=== PATIENT | female | born 1950 | race Caucasian/White ===

== ENCOUNTER 2018-04-08 13:55 | Observation (INO) | payer MEDICARE, OTHER ==
--- NOTE | 2018-04-08 14:20 | ED ---
General Adult HPI - General Chief complaint: Chest Pain Stated complaint: Chest Pain Time Seen by Provider: 04/08/18 14:00 Source: EMS, RN notes reviewed Mode of arrival: EMS Limitations: no limitations - History of Present Illness Initial comments: This is a 67-year-old female who presented to [facility] with chest pain shortness of breath and dizziness. Patient was evaluated her beach in though the d-dimer was normal the physician was concerned that the patient's might have a PE in because of the GFR being low he did not want a CAT scan the patient but he did start heparin. Patient continues to have chest pain which she describes the pressure in the center of her chest. Patient also states she' s a little bit short of breath and continues to be dizzy. Patient denies any recent fever chills or cough per patient denies abdominal pain patient denies nausea vomiting diarrhea per patient denies headache patient denies numbness weakness. Patient denies any near syncopal episode. - Related Data Home Medications Medication Instructions Recorded Confirmed Citalopram Hydrobromide 40 mg PO DAILY 04/08/18 04/08/18 [Citalopram HBr] Cyclobenzaprine [Flexeril] 10 mg PO DAILY 04/08/18 04/08/18 Fluconazole 200 mg PO DAILY 04/08/18 04/08/18 Gabapentin [Neurontin] 400 mg PO TID 04/08/18 04/08/18 Levothyroxine Sodium [Synthroid] 50 mcg PO DAILY 04/08/18 04/08/18 Losartan/Hydrochlorothiazide 1 tab PO DAILY 04/08/18 04/08/18 [Losartan-Hctz 100-25 mg Tab] Montelukast [Singulair] 10 mg PO DAILY 04/08/18 04/08/18 Oxybutynin Xl [Ditropan Xl] 5 mg PO DAILY 04/08/18 04/08/18 Pantoprazole [Protonix] 40 mg PO DAILY 04/08/18 04/08/18 Zolpidem [Ambien] 10 mg PO HS PRN 04/08/18 04/08/18 clonazePAM 0.5 mg PO BID 04/08/18 04/08/18 oxyCODONE HCL [OxyIR] 5 mg PO TID 04/08/18 04/08/18 rOPINIRole HCL 0.5 mg PO DAILY 04/08/18 04/08/18 Allergies Allergy/AdvReac Type Severity Reaction Status Date / Time acetaminophen [From Vicodin] Allergy Rash/Hives Verified 04/08/18 14:11 ciprofloxacin [From Cipro] Allergy Rash/Hives Verified 04/08/18 14:11 hydrocodone [From Vicodin] Allergy Rash/Hives Verified 04/08/18 14:11 Iaozeue-Afu-Ryy Reductase AdvReac Nausea & Verified 04/08/18 14:11 Inhibitor Vomiting Review of Systems ROS Statement: Those systems with pertinent positive or pertinent negative responses have been documented in the HPI. ROS Other: All systems not noted in ROS Statement are negative. Past Medical History Past Medical History: Asthma, Hypertension, Thyroid Disorder History of Any Multi-Drug Resistant Organisms: None Reported Past Surgical History: Back Surgery, Cholecystectomy, Hysterectomy, Orthopedic Surgery Additional Past Surgical History / Comment(s): pelvic reconstruction Past Psychological History: No Psychological Hx Reported Smoking Status: Never smoker Past Alcohol Use History: None Reported Past Drug Use History: None Reported General Exam - General Exam Comments Initial Comments: GENERAL: Patient is well-developed and well-nourished. Patient is nontoxic and well- hydrated and is in mild distress. ENT: Neck is soft and supple. No significant lymphadenopathy is noted. Oropharynx is clear. Moist mucous membranes. Neck has full range of motion without eliciting any pain. EYES: The sclera were anicteric and conjunctiva were pink and moist. Extraocular movements were intact and pupils were equal round and reactive to light. Eyelids were unremarkable. PULMONARY: Unlabored respirations. Good breath sounds bilaterally. No audible rales rhonchi or wheezing was noted. CARDIOVASCULAR: There is a regular rate and rhythm without any murmurs gallops or rubs. ABDOMEN: Soft and nontender with normal bowel sounds. No palpable organomegaly was noted. There is no palpable pulsatile mass. SKIN: Skin is clear with no lesions or rashes and otherwise unremarkable. NEUROLOGIC: Patient is alert and oriented x3. Cranial nerves II through XII are grossly intact. Motor and sensory are also intact. Normal speech, volume and content. Symmetrical smile. MUSCULOSKELETAL: Normal extremities with adequate strength and full range of motion. No lower extremity swelling or edema. No calf tenderness. LYMPHATICS: No significant lymphadenopathy is noted PSYCHIATRIC: Normal psychiatric evaluation. Limitations: no limitations Course Vital Signs 04/08/18 04/08/1804/08/18 13:56 14:46 14:48 Temperature 98.3 F Pulse Rate 96 87 Respiratory 20 16 16 Rate Blood Pressure 105/75 114/70 O2 Sat by Pulse 99 99 Oximetry Medical Decision Making - Medical Decision Making EKG shows normal sinus rhythm at 87 bpm GA interval 172 QRS is 130 QT was 440 QTC is 534. Patient's EKG shows no ST segment elevation or depression or T wave abnormalities are noted. I repeated the troponin it was normal but the patient continued to have chest pain. I spoke with Dr. Marquez he accepts patient admitted the patient I wrote admitting orders I continued heparin and aspirin and Nitropaste on the floor. I consult cardiology. - Lab Data Result diagrams: 04/08/18 14:30 Lab Results 04/08/18 04/08/18 Range/Units 14:30 14:30 Sodium 139 (137-145) mmol/L Potassium 3.8 (3.5-5.1) mmol/L Chloride 109 H (98-107) mmol/L Carbon Dioxide 24 (22-30) mmol/L Anion Gap 6 mmol/L BUN 21 H (7-17) mg/dL Creatinine 1.14 H (0.52-1.04) mg/dL Est GFR (CKD-EPI)AfAm 58 (>60 ml/min/1.73 sqM) Est GFR (CKD-EPI)NonAf 51 (>60 ml/min/1.73 sqM) Glucose 85 (74-99) mg/dL Calcium 8.3 L (8.4-10.2) mg/dL Total Bilirubin 0.5 (0.2-1.3) mg/dL AST 23 (14-36) U/L ALT 27 (9-52) U/L Alkaline Phosphatase 70 (38-126) U/L Troponin I <0.012 (0.000-0.034) ng/mL Total Protein 6.1 L (6.3-8.2) g/dL Albumin 3.6 (3.5-5.0) g/dL Disposition Clinical Impression: Unstable angina pectoris Disposition: ADMITTED IP TO THIS HOSP Referrals: Basilio Vazquez MD [Primary Care Provider] - 1-2 days Time of Disposition: 15:52
[2018-04-08 15:05] LABS: Albumin 3.6 g/dL (3.5-5.0); Calcium 8.3 mg/dL (8.4-10.2); Potassium 3.8 mmol/L (3.5-5.1); Total Bilirubin 0.5 mg/dL (0.2-1.3); Total Protein 6.1 g/dL (6.3-8.2)
[2018-04-08] MEDS ORDERED: NITROGLYCERIN SL TABS 0.4 MG TAB SUBLINGUAL PRN (15:53)
[2018-04-08] MEDS ORDERED: ALPRAZolam 0.25 MG TAB PO PRN (17:10)
--- NOTE | 2018-04-08 19:49 | NM ---
EXAMINATION TYPE: NM pul vent and perfuse DATE OF EXAM: 04/08/2018 COMPARISON: NONE HISTORY: 67-year-old female with dyspnea and chest pain TECHNIQUE: Utilizing inhalation of 38.7 mCi Tc 99m DTPA aerosol and intravenous injection of 5.5 mCi of Tc 99m MAA, ventilation and perfusion images are acquired post injection in multiple projections. FINDINGS: Normal radiotracer distribution is noted in the lungs. There is no evidence of mismatched defects. IMPRESSION: Low probability for pulmonary embolism.
--- NOTE | 2018-04-08 20:09 | HP ---
HISTORY AND PHYSICAL DATE OF SERVICE: 04/08/2018 CHIEF COMPLAINT: Chest pain. HISTORY OF PRESENT ILLNESS: This 67-year-old woman with a past medical history of asthma, hypertension, history of hypothyroidism, back surgery, history of cholecystectomy, hysterectomy, history of DJD, history of pelvic reconstruction, being followed by followed by Dr. Valentin Vazquez in [facility], has presented to [facility] with complaints of chest pain. The patient had chest discomfort which was felt in the anterior part of the chest. Patient also had associated dizziness and some nausea too. The patient also had shortness of breath. The D-dimer was normal and the CT scan was not done because of the low GFR. D-dimer was negative. The patient continues to have chest pain and because of that the patient was transferred to [facility] and admitted for further evaluation and treatment. EKG showed normal sinus rhythm with some left axis deviation, wide-complex QRS complexes and basic labs showed creatinine 1.14. Patient was started on Lovenox at this time. There is no history of fever, rigors or chills. No history of headache, loss of consciousness, seizures at this time. PAST MEDICAL HISTORY: History of asthma, hypertension, hypothyroidism, history of back surgery, cholecystectomy. MEDICATIONS: Prior to admission include home medications are: 1. Oxycodone 5 mg p.o. t.i.d. 2. Clonazepam 0.5 mg b.i.d. 3. Ambien 10 mg q.h.s. p.r.n. 4. Synthroid 50 mcg p.o. daily. 5. Celexa 40 mg p.o. daily. 6. Requip 0.5 mg p.o. daily. 7. Ditropan XL 5 mg p.o. daily. 8. Singular 10 mg p.o. daily. 9. Losartan hydrochlorothiazide 100/25 mg p.o. daily. 10.Neurontin 400 mg p.o. t.i.d. 11.Protonix 40 mg p.o. daily. 12.Fluconazole 200 mg p.o. daily. 13.Flexeril 10 mg p.o. daily. ALLERGIES: VICODIN, CIPRO, AND STATINS. FAMILY HISTORY: No history of heart disease or strokes in the family. SOCIAL HISTORY: No history of smoking. No history of alcohol intake. REVIEW OF SYSTEMS: ENT: No diminished vision. No diminished hearing. Cardio system as mentioned earlier. Respiratory: As mentioned earlier. GI: No nausea or vomiting. no dysuria. Nervous system: No numbness or weakness. Allergy/Immunology: No asthma or hayfever. Neurological: As mentioned earlier. Hematology/Oncology: No history of anemia. Endocrine: Hypothyroidism. CONSTITUTIONAL: As mentioned. Dermatology: Negative. Rheumatology: Negative. Psychiatry: As mentioned earlier. PHYSICAL EXAMINATION: Alert, oriented x3. Pulse 92. Blood pressure 112/69, respiration 18, temperature 98.2, pulse ox 97% on room air. HEENT: Oral mucosa moist. Neck is no jugular venous distention. No carotid bruit. No lymph node enlargement. CARDIOVASCULAR SYSTEM: S1, S2 muffled. RESPIRATORY SYSTEM: Breath sounds diminished at the bases. A few scattered rhonchi and crackles. ABDOMEN: Soft, nontender. No mass. Legs: No edema. No swelling. NERVOUS SYSTEM: Higher functions as mentioned earlier. Moves all four extremities. No focal deficits. LYMPHATICS: No lymph nodes palpable in the neck, axilla and groin. Skin no ulcer, rash or bleeding. LAB STUDIES: The labs are: Sodium 138, potassium 3.8, creatinine is 1.1. ASSESSMENT: 1. Chest pain possible unstable angina. 2. Shortness of breath, possibly asthma exacerbation, rule out pulmonary embolism. 3. Increased creatinine with chronic kidney disease stage III. 4. History of hypertension. 5. History of hypothyroidism. 6. History of back pain, degenerative joint disease. 7. History of cholecystectomy. 8. History of hysterectomy. 9. History of pelvic reconstruction. RECOMMENDATIONS AND DISCUSSION: In this 67-year-old woman who presented with multiple complex medical issues, we will monitor the patient closely. Continue the current medications, management and symptomatic treatment. We will obtain cardiology consultation. V/Q scan. Continue with Lovenox. Continue the rest of the home medications. Symptomatic treatment will be provided. Repeat labs will be ordered. Overall prognosis guarded because of multiple complex medical issues. Further recommendations to follow. Discussed with the patient and family. A copy of dictation being forwarded to Dr. Vazquez. DANNA / BRADLEY: [id number] /
[2018-04-08] MEDS ORDERED: ZOLPIDEM 10 MG TAB PO PRN (21:00)
[2018-04-08] MEDS ORDERED: TEMAZEPAM 15 MG CAP PO PRN (21:00)
[2018-04-08] MEDS: NITROGLYCERIN OINT 1 INCH/GM PACKET TOPICAL SCH (21:23)
[2018-04-08] MEDS: PANTOPRAZOLE 40 MG TABLET PO SCH (21:23)
[2018-04-08] MEDS: ENOXAPARIN 80 MG/0.8 ML SYRINGE SQ SCH (21:24)
[2018-04-08] MEDS: clonazePAM 0.5 MG TAB PO SCH (21:24)
[2018-04-08] MEDS: GABAPENTIN 400 MG CAP PO SCH (21:31)
[2018-04-08 21:44] LABS: Amorphous Sediment,Urine Rare /hpf; Appearance,Urine Cloudy (Clear); Bilirubin,Urine Negative (Negative); Blood,Urine Trace (Negative); Color,Urine Yellow; Glucose,Urine (UA) Negative (Negative); Ketones,Urine Negative (Negative); Leukocyte Esterase,Urine Negative (Negative); Mucus,Urine Rare /hpf; Nitrite,Urine Negative (Negative); PH, Urine 5.5 (5.0-8.0); Protein,Urine Negative (Negative); RBC,Urine 1 /hpf (0-5); Specific Gravity,Urine 1.009 (1.001-1.035); Squamous Epithelial Cell,Urine 16 /hpf (0-4); Urobilinogen,Urine <2.0 mg/dL (<2.0); WBC,Urine 1 /hpf (0-5)
[2018-04-08 22:09] LABS: Creatine Kinase 364 U/L (30-135)
[2018-04-08 22:22] LABS: Creatine Kinase MB 3.9 ng/mL (0.0-2.4); Troponin I <0.012 ng/mL (0.000-0.034)
[2018-04-09 03:00] LABS: Anion Gap 7 mmol/L; Blood Urea Nitrogen 16 mg/dL (7-17); Calcium 8.7 mg/dL (8.4-10.2); Carbon Dioxide 23 mmol/L (22-30); Chloride 107 mmol/L (98-107); Cholesterol 222 mg/dL (<200); Glucose 117 mg/dL (74-99); HDL Cholesterol 29 mg/dL (40-60); LDL Cholesterol,Calculated 130 mg/dL (0-99); Potassium 3.7 mmol/L (3.5-5.1); Sodium 137 mmol/L (137-145); Triglycerides 314 mg/dL (<150)
[2018-04-09 03:09] LABS: Anisocytosis Slight; Basophils # (A) 0.1 k/uL (0-0.2); Basophils % (A) 1 %; Creatine Kinase 331 U/L (30-135); Eosinophils # (A) 0.2 k/uL (0-0.7); Eosinophils % (A) 3 %; HCT 37.4 % (34.0-46.0); Lymphocytes # (A) 2.5 k/uL (1.0-4.8); Lymphocytes % (A) 34 %; MCH 27.3 pg (25.0-35.0); MCV 85.3 fL (80.0-100.0); Mean Platelet Volume 6.5; Monocytes # (A) 0.5 k/uL (0-1.0); Monocytes % (A) 7 %; Neutrophils % (A) 54 %; Platelet Count 323 k/uL (150-450); RBC 4.39 m/uL (3.80-5.40); RDW 16.5 % (11.5-15.5); WBC 7.4 k/uL (3.8-10.6)
[2018-04-09 03:22] LABS: Creatine Kinase MB 3.9 ng/mL (0.0-2.4); Troponin I <0.012 ng/mL (0.000-0.034)
[2018-04-09] MEDS: NITROGLYCERIN OINT 1 INCH/GM PACKET TOPICAL SCH ×2 (03:56→08:02)
[2018-04-09] MEDS ORDERED: ONDANSETRON 4 MG/2 ML VIAL IVP PRN (05:26)
[2018-04-09] MEDS ORDERED: ACETAMINOPHEN TAB 325 MG TAB PO PRN (08:18)
[2018-04-09] MEDS ORDERED: CYCLOBENZAPRINE 10 MG TAB PO SCH ×2 (09:00→21:00)
[2018-04-09] MEDS ORDERED: ASPIRIN 325 MG TAB PO SCH (09:00)
--- NOTE | 2018-04-09 09:28 | P.CRDCN ---
History of Present Illness Consult date: 04/09/18 Requesting physician: Warren Sevilla Consult reason: chest pain Chief complaint: Chest pain History of present illness: This is a 67-year-old female with documented history of hypertension, hyperlipidemia, patient states that she has tried taking statins in the past but it makes her body ache all over so she discontinued that. She has a prior history of smoking, nondiabetic, no alcohol use. No family history of premature coronary artery disease. Patient was transferred here to [facility] from [facility]. She presented to the hospital there with symptoms of chest pressure and heaviness which started after an episode of dizziness and nausea. Patient does state that approximately one week ago she was dealing with a cold,And upper respiratory infection. She also states that she had similar symptoms approximately 6 years ago, she was transferred to [facility] and underwent a cardiac catheterization there which was reported to her to be normal. According to the patient, she became very lightheaded and dizzy and shortly thereafter developed a pressure sensation in her chest with some radiation through to her back. She denies any overt shortness of breath. On presentation to [facility] her blood pressure was 120/70, she was given sublingual nitroglycerin and blood pressure at that time dropped to the 90 range. Her EKG on presentation here showed a normal sinus rhythm with a left bundle-branch block pattern and nonspecific ST-T wave changes. She was initiated there on IV heparin. Troponin at [facility] was negative. D-dimer negative. White blood cell count 12.3, hemoglobin 13.8, hematocrit 41 , BUN 27 and creatinine 1.8. Sodium 135, potassium 3.4. Upon transfer here patient did undergo a lung perfusion scan which came back negative for pulmonary embolism. A repeat EKG was also performed on arrival here which showed a normal sinus rhythm with left bundle branch block pattern and nonspecific ST-T wave changes. Subsequent EKG performed here showed normal sinus rhythm with intermittent left bundle. Laboratory tests performed here, CBC was normal. Potassium 3.7, BUN 16, creatinine 0.7. Troponins here are negative 3. CKs in the range of 300. Cholesterol 222, triglycerides 314, LDL 1:30 and HDL 29. At the time of my examination this morning, patient is currently chest pain-free. Past Medical History Past Medical History: Asthma, Hypertension, Thyroid Disorder History of Any Multi-Drug Resistant Organisms: None Reported Past Surgical History: Back Surgery, Cholecystectomy, Hysterectomy, Orthopedic Surgery Additional Past Surgical History / Comment(s): pelvic reconstruction Past Psychological History: No Psychological Hx Reported Smoking Status: Never smoker Past Alcohol Use History: None Reported Past Drug Use History: None Reported Medications and Allergies Home Medications Medication Instructions Recorded Confirmed Type Citalopram Hydrobromide 40 mg PO DAILY 04/08/18 04/08/18 History [Citalopram HBr] Cyclobenzaprine [Flexeril] 10 mg PO DAILY 04/08/18 04/08/18 History Fluconazole 200 mg PO DAILY 04/08/18 04/08/18 History Gabapentin [Neurontin] 400 mg PO TID 04/08/18 04/08/18 History Levothyroxine Sodium [Synthroid] 50 mcg PO DAILY 04/08/18 04/08/18 History Losartan/Hydrochlorothiazide 1 tab PO DAILY 04/08/18 04/08/18 History [Losartan-Hctz 100-25 mg Tab] Montelukast [Singulair] 10 mg PO DAILY 04/08/18 04/08/18 History Oxybutynin Xl [Ditropan Xl] 5 mg PO DAILY 04/08/18 04/08/18 History Pantoprazole [Protonix] 40 mg PO DAILY 04/08/18 04/08/18 History Zolpidem [Ambien] 10 mg PO HS PRN 04/08/18 04/08/18 History clonazePAM 0.5 mg PO BID 04/08/18 04/08/18 History oxyCODONE HCL [OxyIR] 5 mg PO TID 04/08/18 04/08/18 History rOPINIRole HCL 0.5 mg PO DAILY 04/08/18 04/08/18 History Allergies Allergy/AdvReac Type Severity Reaction Status Date / Time ciprofloxacin [From Cipro] Allergy Rash/Hives Verified 04/08/18 14:11 hydrocodone [From Vicodin] Allergy Rash/Hives Verified 04/08/18 14:11 Vgoakoj-Rie-Fcf Reductase AdvReac Nausea & Verified 04/08/18 14:11 Inhibitor Vomiting Physical Exam Vitals: Vital Signs Temp Pulse Resp BP Pulse Ox 04/09/18 08:04 98.4 F 92 18 122/88 98 04/09/18 01:43 97 16 106/70 95 12/01/18 23:19 92 16 109/83 96 04/08/18 21:31 85 16 109/66 96 04/08/18 19:54 98.2 F 90 16 125/78 95 04/08/18 16:14 92 18 112/69 96 04/08/18 14:48 87 16 114/70 99 04/08/18 14:46 16 04/08/18 13:56 98.3 F 96 20 105/75 99 PHYSICAL EXAMINATION: GENERAL: 67-year-old female in no acute distress at the time of my examination HEENT: Head is atraumatic, normocephalic. Pupils equal, round. Sclera anicteric. Conjunctiva are clear. Mucous membranes of the mouth are moist. Neck is supple. There is no elevated jugular venous pressure. No carotid bruit is heard. HEART EXAMINATION: Heart S1, S2 normal. No murmur or gallop heard. CHEST EXAMINATION: Lungs are clear to auscultation and precussion. No chest wall tenderness is noted on palpation or with deep breathing. ABDOMEN: Soft, nontender. Bowel sounds are heard. No organomegaly noted. EXTREMITIES: 2+ peripheral pulses with no evidence of peripheral edema and no calf tenderness noted. NEUROLOGIC patient is awake, alert and oriented 3 . . Results 04/09/18 02:08 04/09/18 02:08 Cardiac Enzymes 04/08/18 04/08/18 04/08/18 Range/Units 14:30 14:30 21:33 AST 23 (14-36) U/L CK-MB (CK-2) 3.9 H (0.0-2.4) ng/mL Troponin I <0.012 <0.012 (0.000-0.034) ng/mL 04/09/18 Range/Units 02:08 AST (14-36) U/L CK-MB (CK-2) 3.9 H (0.0-2.4) ng/mL Troponin I <0.012 (0.000-0.034) ng/mL Lipids 04/09/18 Range/Units 02:08 Triglycerides 314 H (<150) mg/dL Cholesterol 222 H (<200) mg/dL HDL Cholesterol 29 L (40-60) mg/dL CBC 04/09/18 Range/Units 02:08 WBC 7.4 (3.8-10.6) k/uL RBC 4.39 (3.80-5.40) m/uL Hgb 12.0 (11.4-16.0) gm/dL Hct 37.4 (34.0-46.0) % Plt Count 323 (150-450) k/uL Comprehensive Metabolic Panel 04/08/18 04/09/18 Range/Units 14:30 02:08 Sodium 139 137 (137-145) mmol/L Potassium 3.8 3.7 (3.5-5.1) mmol/L Chloride 109 H 107 (98-107) mmol/L Carbon Dioxide 24 23 (22-30) mmol/L BUN 21 H 16 (7-17) mg/dL Creatinine 1.14 H 0.78 (0.52-1.04) mg/dL Glucose 85 117 H (74-99) mg/dL Calcium 8.3 L 8.7 (8.4-10.2) mg/dL AST 23 (14-36) U/L ALT 27 (9-52) U/L Alkaline Phosphatase 70 (38-126) U/L Total Protein 6.1 L (6.3-8.2) g/dL Albumin 3.6 (3.5-5.0) g/dL Current Medications Generic Name Dose Route Start Last Admin Trade Name Freq PRN Reason Stop Dose Admin Acetaminophen 650 mg 04/09/18 08:18 04/09/18 08:59 Tylenol Tab PO 650 mg Q4HR PRN Administration Fever and/ or Pain Alprazolam 0.25 mg 04/08/18 17:10 Xanax PO TID PRN Anxiety Aspirin 325 mg 04/09/18 09:00 Aspirin PO DAILY EMMANUELLE Citalopram Hydrobromide 40 mg 04/09/18 09:00 Celexa PO DAILY EMMANUELLE Clonazepam 0.5 mg 04/08/18 21:00 04/08/18 21:24 Klonopin PO 0.5 mg BID EMMANUELLE Administration Cyclobenzaprine HCl 10 mg 04/09/18 09:00 Flexeril PO DAILY EMMANUELLE Enoxaparin Sodium 80 mg 04/08/18 21:00 04/08/18 21:24 Lovenox SQ 80 mg Q12HR EMMANUELLE Administration Fluconazole 200 mg 04/09/18 09:00 Diflucan PO DAILY EMMANUELLE Gabapentin 400 mg 04/08/18 22:00 04/08/18 21:31 Neurontin PO 400 mg TID EMMANUELLE Administration HCTZ/Losartan Potassium 2 each 04/09/18 09:00 Hyzaar 50-12.5 PO DAILY [facility] Levothyroxine Sodium 50 mcg 04/09/18 06:30 Synthroid PO 0630 [facility] Montelukast Sodium 10 mg 04/09/18 09:00 Singulair PO DAILY [facility] Nitroglycerin 1 inch 04/08/18 18:00 04/09/18 08:02 Nitro-Bid Oint TOPICAL Not Given Q6HR [facility] Nitroglycerin 0.4 mg 04/08/18 15:53 Nitrostat SUBLINGUAL Q5M PRN Chest Pain Ondansetron HCl 4 mg 04/09/18 05:26 04/09/18 05:33 Zofran IVP 4 mg Q6HR PRN Administration Nausea Oxybutynin Chloride 5 mg 04/09/18 09:00 Ditropan Xl PO DAILY [facility] Oxycodone HCl 5 mg 04/08/18 17:15 04/08/18 21:21 Oxyir PO 5 mg TID EMMANUELLE Administration Pantoprazole Sodium 40 mg 04/08/18 17:15 04/08/18 21:23 Protonix PO 40 mg DAILY EMMANUELLE Administration Ropinirole HCl 0.5 mg 04/08/18 17:15 04/08/18 21:22 Requip PO 0.5 mg DAILY EMMANUELLE Administration Zolpidem Tartrate 10 mg 04/08/18 21:00 Ambien PO HS PRN Insomnia 04/09/18 02:08 04/09/18 02:08 EKG Interpretations (text) AG at [facility] showed a normal sinus rhythm with a left bundle- branch block pattern, subsequent EKG performed here shows normal sinus rhythm with intermittent left bundle pattern. Nonspecific ST-T wave changes. Assessment and Plan Plan: Assessment and plan #1 symptoms of dizziness , nausea and lightheadedness with associated chest pressure, somewhat atypical for acute coronary syndrome.. VQ scan negative for pulmonary embolism. D-dimer negative. Troponins negative 4. EKG shows sinus rhythm with a left bundle-branch block pattern and intermittent left bundle. Patient did undergo cardiac catheterization 5 or 6 years ago a [facility] and was told her coronary arteries were normal. #2 hypertension #3 recent upper respiratory infection #4 hyperlipidemia, untreated. Patient states she has tried statins in the past and has had severe body aches from that. #5 prior history of smoking Plan We will obtain an echocardiogram with Doppler study. Discontinue IV heparin. We will also obtain records of patient's prior cardiac catheterization and old EKG. We'll recommend patient undergo dobutamine echo tomorrow, further recommendations to follow. DNP note has been reviewed, I agree with a documented findings and plan of care. Patient was seen and examined.
[2018-04-09] MEDS ORDERED: DOBUTamine DRIP for NUC MED 500 MG in DEXTROSE/WATER 1 250ML.BAG IV ONE (09:33)
[2018-04-09] MEDS: PANTOPRAZOLE 40 MG TABLET PO SCH (09:55)
[2018-04-09] MEDS: GABAPENTIN 400 MG CAP PO SCH ×3 (09:56→19:31)
[2018-04-09] MEDS: clonazePAM 0.5 MG TAB PO SCH ×2 (09:56→19:31)
[2018-04-09] MEDS: LEVOTHYROXINE 50 MCG TAB PO SCH (09:57)
[2018-04-09] MEDS: CITALOPRAM HYDROBROMIDE 20 MG TAB PO SCH (09:57)
[2018-04-09] MEDS: FLUCONAZOLE 100 MG TAB PO SCH (09:58)
[2018-04-09] MEDS: LOSARTAN-HCTZ 50-12.5 MG 1 EACH TAB PO SCH (09:58)
[2018-04-09] MEDS: MONTELUKAST 10 MG TAB PO SCH (09:59)
[2018-04-09] MEDS: OXYBUTYNIN XL 5 MG TAB.ER.24 PO SCH (09:59)
--- NOTE | 2018-04-09 17:54 | PN ---
PROGRESS NOTE DATE OF SERVICE: 04/09/2018 This 61-year-old woman was admitted with chest pain is slated to have a stress test tomorrow. No chest pain. No palpitations. No fever. EXAM: Alert and oriented x3. Pulse 85, blood pressure 109/77. Respiratory rate 12, temperature 98.4, pulse ox 94% on room air. HEENT: Conjunctivae normal. NECK: No jugular venous distention. CARDIOVASCULAR: S1, S2. RESPIRATORY: Breath sounds diminished in the bases. No rhonchi. No crackles. ABDOMEN is soft, nontender. No mass palpable. Legs are no edema, no swelling. Central nervous system: No focal deficits. LABS: CK-MB is 3.9. Troponins are negative. Triglycerides 314 and cholesterol was 222. The UA noted. ASSESSMENT: 1. Chest pain possible unstable angina. 2. Shortness of breath with possible asthma acute exacerbation. 3. Increased creatinine with chronic kidney stage III. 4. Hyperlipidemia. 5. Hypertension. 6. Hypothyroidism. 7. History of back pain, degenerative joint disease. 8. History of cholecystectomy. 9. History of hysterectomy. 10.History of pelvic reconstruction. RECOMMENDATIONS AND DISCUSSION: Recommend to continue current medications, continue symptomatic treatment. I would also recommend a TSH evaluation. Cardiology consultation. Otherwise, possible stress test. Guarded prognosis because of multiple complex medical issues. Further recommendations to follow. The patient has ALLERGY TO STATINS. We will continue to monitor. V/Q scan is low probability. MMODL / IJN: [id number] /
[2018-04-09 17:59] VITALS: BMI 31.8
[2018-04-09] MEDS: ENOXAPARIN 80 MG/0.8 ML SYRINGE SQ SCH (18:50)
[2018-04-09] MEDS ORDERED: ALBUTEROL NEBULIZED 2.5 MG/3 ML INHALATION PRN (19:19)
[2018-04-09] MEDS ORDERED: guaiFENesin SYRUP 100MG/5ML 200 MG/10 ML CUP PO PRN (20:33)
[2018-04-10] MEDS: LEVOTHYROXINE 50 MCG TAB PO SCH (04:38)
[2018-04-10 07:59] VITALS: TEMP 97.7
[2018-04-10] MEDS ORDERED: REGADENOSON 0.4 MG/5 ML SYRINGE IV ONE (08:55)
[2018-04-10] MEDS ORDERED: CAFFEINE CITRATE 60 MG/3 ML VIAL IV PRN (08:55)
[2018-04-10] MEDS ORDERED: DOBUTamine DRIP for NUC MED 500 MG in DEXTROSE/WATER 1 250ML.BAG IV ONE (09:00)
[2018-04-10] MEDS ORDERED: ASPIRIN 81 MG PO SCH (09:00)
[2018-04-10 09:52] LABS: Anisocytosis Slight; Basophils # (A) 0.1 k/uL (0-0.2); Basophils % (A) 1 %; Eosinophils # (A) 0.2 k/uL (0-0.7); Eosinophils % (A) 4 %; HCT 38.6 % (34.0-46.0); HGB 12.7 gm/dL (11.4-16.0); Lymphocytes # (A) 2.2 k/uL (1.0-4.8); Lymphocytes % (A) 38 %; MCH 28.2 pg (25.0-35.0); MCHC 32.8 g/dL (31.0-37.0); MCV 85.9 fL (80.0-100.0); Mean Platelet Volume 6.9; Monocytes # (A) 0.4 k/uL (0-1.0); Monocytes % (A) 8 %; Neutrophils # (A) 2.8 k/uL (1.3-7.7); Neutrophils % (A) 47 %; Platelet Count 278 k/uL (150-450); RDW 16.4 % (11.5-15.5); WBC 5.9 k/uL (3.8-10.6)
--- NOTE | 2018-04-10 09:57 | ECHOF ---
Referral Reason:chest pain MEASUREMENTS -------- HEIGHT: 157.5 cm WEIGHT: 78.9 kg BP: 95/61 IVSd: 1.3 cm (0.6 - 1.1) LVIDd: 3.0 cm (3.9 - 5.3) LVPWd: 1.4 cm (0.6 - 1.1) IVSs: 1.5 cm LVIDs: 2.0 cm LVPWs: 1.4 cm LAESV Index (A-L): 12.44 ml/m Ao Diam: 2.6 cm (2.0 - 3.7) AV Cusp: 1.6 cm (1.5 - 2.6) LA Diam: 2.7 cm (2.7 - 3.8) MV EXCURSION: 12.148 mm (> 18.000) MV EF SLOPE: 38 mm/s (70 - 150) EPSS: 0.2 cm MV E Tyler: 0.74 m/s MV DecT: 222 ms MV A Tyler: 1.04 m/s MV E/A Ratio: 0.72 AR PHT: 173 ms RAP: 5.00 mmHg RVSP: 21.04 mmHg FINDINGS -------- Sinus rhythm. This was a technically good study. The left ventricular size is normal. There is moderate concentric left ventricular hypertrophy. O verall left ventricular systolic function is normal with, an EF between 55 - 60 %. The right ventricle is normal in size and function. The left atrial size is normal. The right atrial size is normal. The aortic valve is trileaflet and appears structurally normal. Trace amount of aortic regurgitatio n. The mitral valve is normal. Mild mitral regurgitation is present. Mild tricuspid regurgitation present. There is no evidence of pulmonary hypertension. The right v entricular systolic pressure, as measured by Doppler, is 21.04mmHg. There is no pulmonic regurgitation present. The aortic root size is normal. Normal inferior vena cava with normal inspiratory collapse consistent with estimated right atrial pre ssure of 5 mmHg. There is no pericardial effusion. CONCLUSIONS -------- 1. Sinus rhythm. 2. This was a technically good study. 3. The left ventricular size is normal. 4. There is moderate concentric left ventricular hypertrophy. 5. Overall left ventricular systolic function is normal with, an EF between 55 - 60 %. 6. The left atrial size is normal. 7. The right atrial size is normal. 8. Trace amount of aortic regurgitation. 9. Mild mitral regurgitation is present. 10. Mild tricuspid regurgitation present. 11. There is no evidence of pulmonary hypertension. 12. There is no pulmonic regurgitation present. 13. The aortic root size is normal. 14. Normal inferior vena cava with normal inspiratory collapse consistent with estimated right atrial pressure of 5 mmHg. 15. There is no pericardial effusion. TOE CLOSING MACHINE TENDER: Alisson Fontana RDCS
[2018-04-10 10:01] LABS: Calcium 9.1 mg/dL (8.4-10.2); Potassium 4.2 mmol/L (3.5-5.1)
--- NOTE | 2018-04-10 10:12 | P.PN ---
Subjective This is a pleasant 67-year-old female past medical history significant for hypertension and dyslipidemia. She is seen and examined resting comfortably in bed in no acute distress. She denies any further symptoms of chest discomfort, dizziness, palpitations or lightheaded feeling. She apparently underwent catheterization 5-6 years ago was normal per the patient. She does not follow with a junior paralegal currently. Blood pressure 101/ 65 heart rate 76. Laboratory data reviewed, hgb 12.7, plt 278, sodium 139, potassium 4.2, cardiac enzymes negative x3, LDL 130, HDL 29, TSH 2.25. Echocardiogram performed reveals preserved LV systolic function with EF 55-60%, mild MR and mild TR. GENERAL: Well-appearing, well-nourished and in no acute distress. NECK: Supple without JVD or thyromegaly. LUNGS: Breath sounds clear to auscultation bilaterally. Respiration equal and unlabored. No wheezes, rales or rhonchi. HEART: Regular rate and rhythm without murmurs, rubs or gallops. S1 and S2 heard. EXTREMITIES: Normal range of motion, no edema. No clubbing or cyanosis. Peripheral pulses intact. ASSESSMENT Chest pain, atypical for an acute coronary syndrome. An acute coronary event has been ruled out. Hypertension Dyslipidemia, untreated. Intolerant to statins in the past. Left bundle branch block PLAN Change her stress test to a Lexiscan secondary to left bundle branch block. Recommend lifestyle modifications for lowering of LDL cholesterol. She may be a candidate for PCKS9 inhibitor. If stress test is normal she is stable from a cardiac perspective. If abnormal we will consider coronary angiography. Follow up with Dr. Torres in 2-3 weeks. Nurse Practitioner note has been reviewed, I agree with a documented findings and plan of care. Patient was seen and examined. Objective - Vital Signs Vital signs: Vital Signs Temp 97.7 F 04/10/18 07:35 Pulse 76 04/10/18 08:00 Resp 19 04/10/18 08:00 BP 101/65 04/10/18 07:35 Pulse Ox 92 L 04/10/18 07:35 Intake & Output 04/09/18 04/10/18 04/10/18 18:59 06:59 18:59 Intake Total 480 Balance 480 Weight 78.925 kg 78.925 kg Intake: Oral 480 Other: Voiding Method Toilet Toilet # Voids 2 - Labs CBC & Chem 7: 04/09/18 02:08 04/09/18 02:08
--- NOTE | 2018-04-10 12:46 | NM ---
EXAMINATION TYPE: NM stress lexiscan cardiolite DATE OF EXAM: 04/10/2018 COMPARISON: NONE HISTORY: Chest pain TECHNIQUE: After the intravenous administration of 10.4 mCi Tc 99m Sestamibi - Cardiolite resting SP ECT images acquired 45 minutes post injection. The patient received 0.4mg Lexiscan, 23.8 mCi Tc 99m Sestamibi - Stress images obtained [address] injection FINDINGS: Review of stress and rest SPECT images demonstrates no distinct perfusion abnormality. Gated analysi s shows normal wall motion with an estimated left ventricular ejection fraction of 78 %. IMPRESSION: No scintigraphic evidence for reversible ischemia. Consider echocardiographic correlation for elevate d ejection fraction
[2018-04-10 12:56] VITALS: BP 114/75; PULSE 90; RESP 18
[2018-04-10] MEDS: clonazePAM 0.5 MG TAB PO SCH (13:24)
[2018-04-10] MEDS: GABAPENTIN 400 MG CAP PO SCH (13:24)
[2018-04-10] MEDS: FLUCONAZOLE 100 MG TAB PO SCH (13:24)
[2018-04-10] MEDS: LOSARTAN-HCTZ 50-12.5 MG 1 EACH TAB PO SCH (13:24)
[2018-04-10] MEDS: OXYBUTYNIN XL 5 MG TAB.ER.24 PO SCH (13:25)
[2018-04-10] MEDS: MONTELUKAST 10 MG TAB PO SCH (13:25)
[2018-04-10] MEDS: PANTOPRAZOLE 40 MG TABLET PO SCH (13:25)
[2018-04-10] MEDS: CITALOPRAM HYDROBROMIDE 20 MG TAB PO SCH (13:30)
--- NOTE | 2018-04-10 14:08 | EST ---
EXERCISE STRESS AGE: 67 SEX: F HT: 5'2" WT: 174 PROTOCOL: Lexiscan Cardiolite Stress Test HEART RATE REST: 70 BLOOD PRESSURE REST: 110/78 MAXIMUM HEART RATE ACHIEVED: 105 MAXIMUM BLOOD PRESSURE: 163/60 85% MPHR: 131 100% MPHR: 154 INDICATIONS: Chest pressure. CLINICAL INFORMATION: Baseline rhythm is sinus mechanism, rate is 70, normal axis and intervals, normal echocardiogram. Baseline blood pressure 110/78 mmHg. Patient received an injection of Lexiscan. Electrocardiographic monitoring revealed intermittent left bundle branch block. Cardiolite was injected per protocol. CONCLUSION: 1. Nondiagnostic electrocardiograph stress testing with intermittent the left bundle branch block. 2. Nuclear images will be reported separately. MMODL / IJN: [id number] /
--- NOTE | 2018-04-11 00:43 | DS ---
DISCHARGE SUMMARY DATE OF SERVICE: 04/10/2018. FINAL DIAGNOSES: 1. Chest pain, possibly musculoskeletal. 2. Shortness of breath, possibly asthma acute exacerbation. 3. Increased creatinine with chronic kidney stage III. 4. Hyperlipidemia. 5. Hypertension. 6. Hypothyroidism. 7. History of back pain and DJD. 8. History of cholecystectomy. 9. History of hysterectomy. 10.History of pelvic reconstruction. DISCHARGE INSTRUCTIONS: The patient will be discharged in stable condition with guarded prognosis. HISTORY OF PRESENT ILLNESS: The patient is a 67-year-old woman with a past history of multiple medical problems. She presented with chest discomfort. Myocardial infarction was ruled out. Cardiology performed a Lexiscan stress test which was reported as showing no evidence of reversible ischemia. The patient improved significantly. PHYSICAL EXAMINATION: VITAL SIGNS: Stable. CARDIOVASCULAR: S1 and S2 muffled. ABDOMEN: Soft. NERVOUS SYSTEM: No focal deficits. LABS: Labs are showing cholesterol 222, LDL 130. The patient is allergic to statins. The patient is being discharged in stable condition with guarded prognosis. DISCHARGE INSTRUCTIONS: 1. Diet is cardiac. 2. Activity limited. 3. Followup with primary physician, Dr. Vazquez in 1 to 2 days. 4. Follow with Cardiology in 2 weeks. MEDICATIONS: 1. Albuterol 2.5 every 4 hours p.r.n. 2. Celexa 40 mg p.o. 3. Clonazepam 0.5 mg t.i.d. 4. Flexeril 10 mg p.o. daily. 5. Diclofenac 1 patch daily. 6. Fluconazole 200 mg daily. 7. Neurontin 400 mg t.i.d. 8. Synthroid 50 mcg p.o. daily. 9. Losartan hydrochlorothiazide 100/25 mg p.o. daily. 10.Singulair 10 mg p.o. 11.Ditropan XL 5 mg p.o. daily. 12.oxy ir 2.5 mg every 4 hours p.r.n. 13.Protonix 40 mg daily. 14.Accupril 0.5 mg daily. 15.Ambien 10 mg at bedtime p.r.n. 16.Aspirin 81 mg p.o. daily. 17.Obtain red yeast rice as outpatient. No other medications. MMODL / IJN: [id number] / [facility]
== END 2018-04-10 15:26 | disposition home or self-care (01) ==
LOC: SUPCPDRO 13:55 → EC 13:55 → 1SOBS 15:56
PROVIDERS: ADMIT Hospitalist; ATTEND Hospitalist
DX: R07.89 Other chest pain (principal); R06.02 Shortness of breath; R42 Dizziness and giddiness; E03.9 Hypothyroidism, unspecified; E78.5 Hyperlipidemia, unspecified; N18.3 Chronic kidney disease, stage 3 (moderate); I44.7 Left bundle-branch block, unspecified; M19.90 Unspecified osteoarthritis, unspecified site; I12.9 Hypertensive chronic kidney disease with stage 1 through stage 4 chronic kidney disease, or unspecified chronic kidney disease; I25.10 Atherosclerotic heart disease of native coronary artery without angina pectoris; J45.909 Unspecified asthma, uncomplicated; Z79.890 Hormone replacement therapy; Z79.899 Other long term (current) drug therapy; Z87.891 Personal history of nicotine dependence; Z90.49 Acquired absence of other specified parts of digestive tract; Z90.710 Acquired absence of both cervix and uterus; Z86.19 Personal history of other infectious and parasitic diseases; Z88.8 Allergy status to other drugs, medicaments and biological substances
CPT/HCPCS: 96372; 96374; 99285; 36415; 94640; 93005 ×2; 93017; 93306; 80061; 80053; 80048 ×2; 84443; 82550 ×2; 82553 ×2; 84484 ×2; 85025 ×2; 81001; 78452; 78582; G0378 ×3; A9500; A9540; A9567; J2405; J1650; J2785

== ENCOUNTER → 2022-09-15 | Outpatient (CLI) | payer MEDICARE, OTHER ==
[2022-09-15 12:42] LABS: INR 0.9 (<1.2); Partial Thromboplastin Time 32.7 sec (22.0-30.0); Prothrombin Time 9.4 sec (9.0-12.0)
[2022-09-15 15:47] LABS: HCT 40.1 % (37.2-46.3); HGB 13.3 g/dL (12.0-15.0); MCH 29.7 pg (27.0-32.0); MCHC 33.2 g/dL (32.0-37.0); MCV 89.5 fL (80.0-97.0); NRBC Per 100 WBC 0 /100 WBCS (0.0-0.0); Platelet Count 271 X 10*3/uL (140-440); RBC 4.48 X 10*6/uL (4.10-5.20); RDW 13.4 % (11.5-14.5); WBC 9.44 X 10*3/uL (4.50-10.00)
[2022-09-15 16:02] LABS: African American GFR (CKD) 101.7 (60.0-200.0); Albumin 4.3 g/dL (3.8-4.9); Albumin/Globulin Ratio 2.15 (1.60-3.17); Anion Gap 9.9 mmol/L (10.00-18.00); Blood Urea Nitrogen 16.8 mg/dL (9.0-27.0); Calcium 9.5 mg/dL (8.7-10.3); Carbon Dioxide 30.1 mmol/L (20.0-27.5); Non-African American GFR(CKD) 87.8 (60.0-200.0); Potassium 3.6 mmol/L (3.5-5.5); Total Bilirubin 0.2 mg/dL (0.30-1.20); Total Protein 6.3 g/dL (6.2-8.2)
[2022-09-15 16:05] LABS: Appearance,Urine Clear (Clear); Bilirubin,Urine Negative (Negative); Blood,Urine Negative (Negative); Color,Urine Yellow (Yellow); Ketones,Urine Negative (Negative); Nitrite,Urine Negative (Negative); PH, Urine 7.5 (5.0-8.0); Specific Gravity,Urine 1.022 (1.001-1.030)
== END | disposition home or self-care (01) ==
LOC: LABPAT 10:49
PROVIDERS: ATTEND Orthopaedic Surgery
DX: Z01.818 Encounter for other preprocedural examination (principal); M17.11 Unilateral primary osteoarthritis, right knee; I49.3 Ventricular premature depolarization; R94.31 Abnormal electrocardiogram [ECG] [EKG]
CPT/HCPCS: 80053; 81003; 85027; 85610; 85730; 87070; 93005

== ENCOUNTER 2022-10-05 09:19 | Day surgery (SDC) | payer MEDICARE, OTHER ==
[2022-09-28 16:20] VITALS: BMI 34.0
[~2022-10-05 09:19] MED LIST: ACETAMINOPHEN TAB 500 MG TAB PO PRN; DEXAMETHASONE SOD PHOSPHATE 4 MG/ML 1 ML VIAL IV ONE; GABAPENTIN 300 MG CAP PO PRN; HYDROmorphone 0.5 MG/0.5 ML SYRINGE IVP PRN; LIDOCAINE 1% (10MG/ML) FOR IV START INTRADERMA PRN; MELOXICAM 7.5 MG TAB PO PRN; MIDAZOLAM 2 MG/2 ML VIAL IV PRN; ONDANSETRON 4 MG/2 ML VIAL IVP ONE; TRANEXAMIC ACID IN NACL,ISO-OS 1,000 MG in SALINE 1 100ML.BAG IVPB PRN
[2022-10-05] MEDS ORDERED: HYDROmorphone 0.5 MG/0.5 ML SYRINGE IVP PRN ×3 (10:15)
[2022-10-05] MEDS ORDERED: bisacodyL 10 MG SUPP RECTAL PRN (10:15)
[2022-10-05] MEDS ORDERED: ONDANSETRON 4 MG/2 ML VIAL IVP PRN (10:15)
[2022-10-05] MEDS ORDERED: NALOXONE 0.4 MG/ML 1 ML VIAL IV PRN (10:15)
[2022-10-05] MEDS ORDERED: MAGNESIUM HYDROXIDE 2,400 MG/10 ML CUP PO PRN (10:15)
[2022-10-05] MEDS ORDERED: NA PHOS,M-B/NA PHOS,DI-BA 133 ML ENEMA RECTAL PRN (10:15)
[2022-10-05] MEDS ORDERED: HYDROcodone/APAP 7.5-325MG 1 EACH TAB PO PRN (10:20)
[2022-10-05 10:25] LABS: Glucose,Whole Blood 98 mg/dL (70-110)
[2022-10-05] MEDS: LACTATED RINGERS 1,000 ML IV SCH (10:26)
[2022-10-05] MEDS ORDERED: fentaNYL (PF) 50 MCG/ML 2 ML AMP ONE (12:21)
[2022-10-05] MEDS ORDERED: TRANEXAMIC ACID IN NACL,ISO-OS 1,000 MG/100 ML BAG ONE (12:21)
[2022-10-05] MEDS ORDERED: DEXAMETHASONE SOD PHOSPHATE 4 MG/ML 1 ML VIAL ONE (12:21)
[2022-10-05] MEDS ORDERED: PROPOFOL 10 MG/ML 20 ML VIAL IV ONE (12:21)
[2022-10-05] MEDS ORDERED: SODIUM CHLORIDE 0.9% (PF) 10 ML VIAL ONE (12:21)
[2022-10-05] MEDS ORDERED: MIDAZOLAM 2 MG/2 ML VIAL ONE (12:21)
[2022-10-05] MEDS ORDERED: ROPIVACAINE 5 MG/ML 30 ML VIAL ONE (12:21)
[2022-10-05] MEDS ORDERED: ceFAZolin 1,000 MG in SODIUM CHLORIDE 0.9% 1,000 ML IRRIGATION ONE (12:50)
--- NOTE | 2022-10-05 13:30 | P.OP ---
Date of Procedure: 10/05/22 Preoperative Diagnosis: Severe osteoarthritis right knee Postoperative Diagnosis: Severe osteoarthritis right knee Procedure(s) Performed: Right total knee arthroplasty Implants: Villagran [employer] Nephew Journey II CR Oxinium cruciate retaining femoral component size 4, right Villagran [employer]hew Journey nonporous tibial baseplate size 2, right Villag[employer]hew Journey II, XLPE Deep Dished articular insert, size 11 mm, Size 1-2, right Villag[employer]hew Journey Cyndee II resurfacing patellar component, oval, 29 mm All components were cemented using Palacos R bone cement The articulation is Oxinium on polyethylene Anesthesia: spinal Surgeon: Glenroy Martines Shirt Closer #1: Abbey Estrada Estimated Blood Loss (ml): 30 Pathology: none sent Condition: stable Disposition: PACU Indications for Procedure: The patient's knee is end-stage, and conservative management has failed. The operation of knee replacement has been discussed at length in the office, as well as potential risks and complications. These are inclusive of, but not limited to: Infection, bleeding, scarring, discomfort, stiffness, blood vessel and nerve damage, need for further surgery, failure to relieve symptoms, persistence, recurrence, or worsening of problems, loosening, dislocation, wear, blood clot, pulmonary embolism, , gait dysfunction, stiffness, and other risks as discussed in the office. Patient elects to proceed and the consent form has been signed. Operative Findings: The operative findings are consistent with severe osteoarthritis of the right knee Description of Procedure: The patient was seen in the preoperative area, the consent was reviewed and the operative site was marked with a skin marker. The patient verified the procedure and the operative site. An adductor canal pain catheter and an iPACK block were placed by anesthesia in the preoperative area. The patient was then brought to the operating room and positioned on the operating room table in the supine position. Preoperative antibiotics and a gram of tranexamic acid were given intravenously. A spinal anesthetic was administered by the anesthesia department. Care was taken to make sure that all pressure points were adequately padded. A tourniquet was placed on the upper thigh and the lower extremity was prepped with ChloraPrep and draped in usual sterile fashion. A universal time-out was then performed which confirmed the patient's name, surgical site, ALLERGIES, and consent. The lower extremity was then exsanguinated and tourniquet was inflated to 250 mmHg. A standard anterior midline approach to the knee was performed. The skin and subcutaneous tissue were sharply dissected down to the patellar tendon. A medial parapatellar arthrotomy was then performed. The knee was then extended, the patellar was everted, and the knee was flexed. The infra-patellar fat pad was removed in order to enhance exposure. The anterior horns of both menisci were excised, and a release was performed to the posterior medial aspect of the knee. On gross visual inspection, there was complete loss of articular cartilage in the medial and patellofemoral joint spaces. There was also significant cartilage damage in the lateral compartment. There were multiple periarticular osteophytes globally about the knee which were then removed with a Ronguer. The femoral canal was then opened with the 9.5 mm intramedullary drill. The 8 mm intramedullary neptali was then inserted into the femoral canal with the distal femoral cutting guide set for 5 of valgus. The distal femoral cutting block was then pinned in place. The intramedullary neptali was then removed, and the distal femur was then cut. The cutting block was then removed and the cut was checked for symmetry. The resected bone was then measured to confirm the appropriate distal femoral resection. Next, the sizing guide was then placed and set for 3 external rotation based off of the epicondylar axis and [place]'s line. Pins were then placed and the drill holes, and the femur was sized with the sizing stylus. The pins were then removed, and the sizing guide was then removed. The spikes of the appropriate size femoral block was then placed into the predrilled holes, and malleted into place. Two 45 mm pins were then placed into the fixation holes on the cutting block. An naz wing was then used to ensure there would be no notching with the anterior cut. The anterior condyles were cut without notching. The anterior chord cut was then performed, followed by the posterior cut, posterior chamfer cut, and the anterior chamfer cut. The collateral ligaments were protected during the entire process. The cutting block was then removed. Any remaining bone and osteophytes were removed from the femur with a Ronguer. Attention was then directed to the tibia. The remaining ACL was removed with a Ronguer, and the tibia was then gently subluxed forward with a large bent knee retractor. Any remaining menisci were excised. The posterior lateral corner was cauterized in order to coagulate the lateral geniculate artery. The extra medullary tibial cutting guide was then placed, set for the appropriate rotation, slope, and depth of resection. The proximal tibia cutting guide was then pinned in place. Proximal tibia was then cut and sized. A curved osteotome was then used to remove any posterior osteophytes from the distal femur. The femoral trial was placed. A narrow saw blade was then used to remove the anterior intracondylar femoral bone. The CR notch trial was then placed. The tibial trial was placed with the appropriate-sized insert. The knee was able to fully extend and flex to 130 and was stable throughout all range of motion. The knee was then extended and the patella was everted. Patella was then measured, and then using an osteotomy guide, the patella was cut at the appropriate level. The patellar component was sized. The patellar drill guide was placed and the patella was drilled. The patella trial was then placed. The knee was then taken through range of motion with the patella trial and the patella tracked normally using the no thumbs technique. The patella trial was then removed. The knee was then flexed and lug holes were drilled through the femoral trial and the femoral trial was then removed. The tibial was then re- exposed, and the tibial broach guide was then pinned in place after it was set for the appropriate rotation to allow for the most coverage without overhang. The tibia was then reamed and broached. The femoral canal was plugged with autologous bone. The cut surfaces of bone were then irrigated with pulsatile lavage. The knee was also irrigated with Irrisept solution. The components were then opened, the cement was mixed. Cement was placed on the backside of the femoral, tibial, and patellar components. Cement was then applied to the tibial surface and pressurized into the surface using finger pressurization technique. The tibial component was then applied and excess cement was removed after it was impacted securely noted to be flush with the cut surface. In similar fashion, the cement was applied to the cut femoral surface, pressurized and using finger pressurization the component was impacted in place. Excess cement was removed. The polyethylene spacer was then implanted and locked into position. Patellar component was then applied in a similar technique and the patellar clamp was used to hold patella in place while the cement hardened. The knee was held in full extension while the cement hardened. Once the cement had fully hardened, the knee was reinspected. Any other cement extrusion was removed the final range of motion testing showed range of motion from 0-130 with excellent stability, both medial and laterally and appropriate alignment of the leg. Patella tracked normally. After the cemented hardened, the tourniquet was released and hemostasis was obtained. A second gram of transexamic acid was given intravenously. The knee was again irrigated. The knee was again taken through range of motion and found to be stable throughout all range of motion of 0-130, and the patella tracked normally. The fascia was then closed with 0 Vicryl followed by #2 strata fix suture. The subcutaneous tissue was closed with 3-0 Vicryl and 3-0 strata fix. Exofin glue was used for the skin and placed with the knee in flexion. After the glue had dried, and Optafoam silver impregnated dressing was applied. A lightly compressive dressing was applied using web roll and Sam wrap. Patient was then transferred to the stretcher and taken to recovery room in stable condition. Sponge and needle counts were correct. The butcher assistant CAROLINA Lao was required due the complexity surgery and the need for a skilled surgical physician assistant. She assisted in positioning, draping, retraction, and closure of the wound.
--- NOTE | 2022-10-05 13:32 | P.ANPRN ---
Procedure Note - Anesthesia - Nerve Block Performed Right Adductor Canal Infusion Time Out Performed: Yes Date of Procedure: 10/05/22 Procedure Start Time: 11:13 Procedure Stop Time: :24 Location of Patient: PreOp Indication: Acute Post-Operative Pain, Requested by Surgeon Sedation Type: Sedate with meaningful contact maintained Preparation: Sterile Prep, Sterile Dressing Position: Supine Catheter: Indwelling Needle Types: On-Q Needle Gauge: 21 Ultrasound used to visualize needle placement: Yes Ultrasound used to observe medication spread: Yes Blood Aspirated: No Pain Paresthesia on Injection Noted: No Resistance on Injection: Normal Image Stored and Saved: Yes Events: Uneventful and Well Tolerated (Ropivacaine 0.5% 20 mL plus dexamethasone 4mg)
--- NOTE | 2022-10-05 13:33 | P.ANPRN ---
Procedure Note - Anesthesia - Nerve Block Performed Right [place] Single Time Out Performed: Yes Date of Procedure: 10/05/22 Procedure Start Time: : Procedure Stop Time: Location of Patient: PreOp Indication: Acute Post-Operative Pain, Requested by Surgeon Sedation Type: Sedate with meaningful contact maintained Preparation: Sterile Prep Position: Supine Needle Types: Pajunk Needle Gauge: 21 Ultrasound used to visualize needle placement: Yes Ultrasound used to observe medication spread: Yes Blood Aspirated: No Pain Paresthesia on Injection Noted: No Resistance on Injection: Normal Image Stored and Saved: Yes Events: Uneventful and Well Tolerated (Ropivacaine 0.5% 20cc plus dexamethasone 4 mg)
[2022-10-05] MEDS ORDERED: LACTATED RINGERS 1,000 ML IV ONE (13:34)
[2022-10-05] MEDS ORDERED: ROPIVACAINE 1,100 MG, SODIUM CHLORIDE 0.9% 500 ML 330 ML, EMPTY PAIN BALL 1 EACH MISCELLANE PRN ×2 (14:27)
--- NOTE | 2022-10-05 15:02 | XR ---
EXAMINATION TYPE: XR knee limited RT DATE OF EXAM: 10/05/2022 CLINICAL HISTORY: Postoperative evaluation Two views of the right knee are submitted. Identified are changes of total knee arthroplasty with femoral and tibial components appearing well seated. Postsurgical soft tissue changes are noted. Alignment is anatomic.
[2022-10-05] MEDS: SODIUM CHLORIDE 0.9% 1,000 ML IV SCH (17:09)
[2022-10-05] MEDS: HYDROcodone/APAP 7.5-325MG 1 EACH TAB PO PRN (18:16)
[2022-10-05] MEDS: ASPIRIN 81 MG PO SCH (20:38)
[2022-10-05] MEDS ORDERED: SYMBICORT 80-4.5 MCG INHALER INHALATION PRN (20:52)
[2022-10-05] MEDS ORDERED: ALBUTEROL NEBULIZED 2.5 MG/3 ML INHALATION PRN (20:52)
[2022-10-05] MEDS ORDERED: clonazePAM 0.5 MG TAB PO PRN (20:52)
[2022-10-05] MEDS ORDERED: SENNOSIDES-DOCUSATE SODIUM 1 EACH TAB PO SCH (21:00)
[2022-10-05] MEDS ORDERED: rOPINIRole HCL 4 MG TABLET PO SCH (21:00)
[2022-10-05] MEDS: PREGABALIN 100 MG CAP PO SCH (21:40)
[2022-10-06] MEDS: HYDROcodone/APAP 7.5-325MG 1 EACH TAB PO PRN ×2 (01:29→07:53)
[2022-10-06] MEDS: SODIUM CHLORIDE 0.9% 1,000 ML IV SCH (03:10)
[2022-10-06] MEDS: LACTATED RINGERS 1,000 ML IV SCH (05:41)
[2022-10-06] MEDS ORDERED: LEVOTHYROXINE 50 MCG TAB PO SCH (06:30)
--- NOTE | 2022-10-06 06:51 | P.PN ---
Progress Note - Text Progress Note Date: 10/06/22 Postoperative day # 1 status post total knee arthroplasty, and adductor canal catheter placed for postoperative analgesia, currently at ropivacaine 0.2% 8 mL per hour and continuous infusion, visual analogue scale is 3/10, patient using oral pain medication for breakthrough pain. Assessment and plan= Acute postoperative pain, adductor canal catheter for pain control, pain is well controlled we'll continue the same management.
[2022-10-06 07:41] VITALS: BP 108/62; PULSE 68; RESP 17; TEMP 98.1
[2022-10-06] MEDS: PREGABALIN 100 MG CAP PO SCH (07:52)
[2022-10-06] MEDS: ASPIRIN 81 MG PO SCH (07:53)
--- NOTE | 2022-10-06 07:53 | P.DS ---
Providers Expected date of discharge: 10/06/22 Attending physician: Glenroy Martines Consults: 10/05/22 10:15 Consult Physician Routine Consulting Provider: Warren Sevilla Consult Reason/Comments: medical management Do you want consulting provider notified?: Yes Primary care physician: Basilio Vazquez MD - Discharge Diagnosis(es) (1) Primary localized osteoarthritis of right knee Current Visit: Yes Status: Acute (2) Status post total right knee replacement Current Visit: Yes Status: Acute Hospital Course: This is a 71-year-old female who was last seen with complaint of continued right knee pain. The patient has a known history of degenerative arthritis of the right knee and presents to discuss surgical options. After discussion and consideration the patient elects to proceed with total right knee arthroplasty. The patient is seen preoperatively by her primary care physician and cleared for surgery. The patient is admitted to [facility] for total right knee arthroplasty. The procedures performed without complication or sequelae. Patient is doing well postoperatively. Vital signs are stable at discharge. Labs are stable at discharge. the patient is ambulating well with walker with minimal assistance. The patient is discharged to home on postop day #1 pending medical clearance. Please see orders and refer to the med rec for accurate list of medications. Patient Condition at Discharge: Good Plan - Discharge Summary Discharge Rx Participant: No New Discharge Prescriptions: New Aspirin [Adult Low Dose Aspirin EC] 81 mg PO BID 30 Days #60 tab Sennosides [Senokot] 2 tab PO DAILY PRN #60 tablet PRN Reason: Constipation HYDROcodone/APAP 7.5-325MG [[place] 7.5-325] 1 - 2 tab PO Q6H PRN #32 tab PRN Reason: Pain No Action oxyCODONE HCL [OxyIR] 5 mg PO Q4-6H PRN PRN Reason: Pain clonazePAM 2 tab PO HS Levothyroxine Sodium [Synthroid] 50 mcg PO DAILY Montelukast [Singulair] 10 mg PO DAILY Losartan/Hydrochlorothiazide [Losartan-Hctz 100-25 mg Tab] 1 tab PO DAILY Pantoprazole [Protonix] 40 mg PO DAILY Pregabalin [Lyrica] 100 mg PO BID estradioL [Estrace] 1 mg PO DAILY Fluticasone/Umeclidin/Vilanter [Trelegy Ellipta 200-62.5-25] 1 puff INHALATION DAILY PRN PRN Reason: Dyspnea Fluticasone Propion/Salmeterol [Advair 100-50 Diskus] 1 inhalation PO BID PRN PRN Reason: Dyspnea Fluconazole [Diflucan] 200 mg PO DAILY Celecoxib [CeleBREX] 200 mg PO DAILY rOPINIRole HCL [Requip] 4 mg PO HS Ezetimibe [Zetia] 10 mg PO DAILY DULoxetine HCL [Cymbalta] 60 mg PO DAILY Albuterol Inhaler [Ventolin Hfa Inhaler] 1 - 2 puff INHALATION Q6H PRN PRN Reason: Dyspnea Discharge Medication List Levothyroxine Sodium [Synthroid] 50 mcg PO DAILY 04/08/18 [History] Losartan/Hydrochlorothiazide [Losartan-Hctz 100-25 mg Tab] 1 tab PO DAILY 04/08/18 [History] Montelukast [Singulair] 10 mg PO DAILY 04/08/18 [History] Pantoprazole [Protonix] 40 mg PO DAILY 04/08/18 [History] clonazePAM 2 tab PO HS 04/08/18 [History] oxyCODONE HCL [OxyIR] 5 mg PO Q4-6H PRN 04/08/18 [History] Albuterol Inhaler [Ventolin Hfa Inhaler] 1 - 2 puff INHALATION Q6H PRN 09/28/22 [History] Celecoxib [CeleBREX] 200 mg PO DAILY 09/28/22 [History] DULoxetine HCL [Cymbalta] 60 mg PO DAILY 09/28/22 [History] Ezetimibe [Zetia] 10 mg PO DAILY 09/28/22 [History] Fluconazole [Diflucan] 200 mg PO DAILY 09/28/22 [History] Fluticasone Propion/Salmeterol [Advair 100-50 Diskus] 1 inhalation PO BID PRN 09/28/22 [History] Fluticasone/Umeclidin/Vilanter [Trelegy Ellipta 200-62.5-25] 1 puff INHALATION DAILY PRN 09/28/22 [History] Pregabalin [Lyrica] 100 mg PO BID 09/28/22 [History] estradioL [Estrace] 1 mg PO DAILY 09/28/22 [History] rOPINIRole HCL [Requip] 4 mg PO HS 09/28/22 [History] Aspirin [Adult Low Dose Aspirin EC] 81 mg PO BID 30 Days #60 tab 10/05/22 [Rx] HYDROcodone/APAP 7.5-325MG [[place] 7.5-325] 1 - 2 tab PO Q6H PRN #32 tab 10/05/22 [Rx] Sennosides [Senokot] 2 tab PO DAILY PRN #60 tablet 10/05/22 [Rx] Follow up Appointment(s)/Referral(s): Glenroy Martines DO [Doctor of Osteopathic Medicine] - 2 Weeks Activity/Diet/Wound Care/Special Instructions: Weightbearing as tolerated with walker. CPM 5-6 hours daily as tolerated. Leave dressing intact. Dressing may be removed by home care nurse or by patient in 7 days. Then change dressing twice daily until follow up. May shower with initial dressing intact and after removal. If dressing become saturated, please remove. Please take aspirin 81mg twice daily for 30 days to prevent blood clots. Recommend use of compression stockings daily until follow up to help prevent swelling and blood clots. May remove at night before sleeping. Please follow-up with [facility] in 2 weeks and call with any questions or concerns, . Discharge Disposition: HOME WITH HOME HEALTH SERVICES
[2022-10-06] MEDS ORDERED: DULoxetine HCL 60 MG CAPSULE.DR PO SCH (09:00)
[2022-10-06] MEDS ORDERED: MONTELUKAST 10 MG TAB PO SCH (09:00)
[2022-10-06] MEDS ORDERED: LOSARTAN-HCTZ 50-12.5 MG 1 EACH TAB PO SCH (09:00)
[2022-10-06] MEDS ORDERED: EZETIMIBE 10 MG TAB PO SCH (09:00)
[2022-10-06] MEDS ORDERED: PANTOPRAZOLE 40 MG TABLET PO SCH (09:00)
[2022-10-06 14:18] LABS: Basophils # (A) 0.02 X 10*3/uL (0.00-0.10); Basophils % (A) 0.1 %; Eosinophils # (A) 0 X 10*3/uL (0.04-0.35); Eosinophils % (A) 0 %; HCT 34.8 % (37.2-46.3); HGB 10.9 g/dL (12.0-15.0); Immature Grans, Automated 0.6 %; Lymphocytes # (A) 1.42 X 10*3/uL (0.90-5.00); Lymphocytes % (A) 9.1 %; MCH 28.7 pg (27.0-32.0); MCHC 31.3 g/dL (32.0-37.0); MCV 91.6 fL (80.0-97.0); Mean Platelet Volume 10.7 fL (9.5-12.2); Monocytes # (A) 1.08 X 10*3/uL (0.20-1.00); Monocytes % (A) 6.9 %; NRBC Per 100 WBC 0 /100 WBCS (0.0-0.0); Neutrophils # (A) 12.92 X 10*3/uL (1.80-7.70); Neutrophils % (A) 83.3 %; Platelet Count 250 X 10*3/uL (140-440); RDW 13.3 % (11.5-14.5); WBC 15.54 X 10*3/uL (4.50-10.00)
--- NOTE | 2022-10-06 16:38 | P.CONS ---
History of Present Illness - Reason for Consult Consult date: 10/06/22 - History of Present Illness This is a 71 year old patient with medical history of asthma, hypertension, hyperlipidemia, thyroid disorder and restless leg syndrome. Patient is admitted for an elective right total knee arthroplasty and is currently evaluated on the medical floor postoperative day #1. Patient is currently reporting controlled pain, has been up with physical therapy and cleared for DC home. Blood pressure is 106 systolic today and recommending to hold home blood pressure medication and monitor BP at home to avoid postoperative hypotension and dizziness. Patients labs today reveal white count of 15 and encouraged to use incentive spirometer and f/u labs outpatient. Patient is denying shortness of breath, no chest pain. Patient is passing gas post surgical. Has been cleared by primary services for DC home today. Patient will be anticoagulated with aspirin 81 mg BID for 30 days as per orthopedic recommendations. REVIEW OF SYSTEMS: CONSTITUTIONAL: No fever, no malaise, no fatigue. HEENT: No recent visual problems or hearing problems. Denied any sore throat. CARDIOVASCULAR: No chest pain, orthopnea, PND, no palpitations, no syncope. PULMONARY: No shortness of breath, no cough, no hemoptysis. GASTROINTESTINAL: No diarrhea, no nausea, no vomiting, no abdominal pain. NEUROLOGICAL: No headaches, no weakness, no numbness. HEMATOLOGICAL: Denies any bleeding or petechiae. GENITOURINARY: Denies any burning micturition, frequency, or urgency. MUSCULOSKELETAL/RHEUMATOLOGICAL: Denies any joint pain, swelling, or any muscle pain. ENDOCRINE: Denies any polyuria or polydipsia. The rest of the 14-point review of systems is negative. PHYSICAL EXAMINATION: GENERAL: The patient is alert and oriented x3, not in any acute distress. Well developed, well nourished. HEENT: Pupils are round and equally reacting to light. EOMI. No scleral icterus. No conjunctival pallor. Normocephalic, atraumatic. No pharyngeal erythema. No thyromegaly. CARDIOVASCULAR: S1 and S2 present. No murmurs, rubs, or gallops. PULMONARY: Chest is clear to auscultation, no wheezing or crackles. ABDOMEN: Soft, nontender, nondistended, normoactive bowel sounds. No palpable organomegaly. MUSCULOSKELETAL: No joint swelling or deformity. EXTREMITIES: No cyanosis, clubbing, or pedal edema. Post surgical right knee dressing intact, positive pulses NEUROLOGICAL: Gross neurological examination did not reveal any focal deficits. SKIN: No rashes. Assessment Osteoarthritis postoperative day #1 total right knee arthroplasty History of asthma with no acute exacerbation Postoperative leukocytosis expected to improve Hypertension currently normotensive Hx of hyperlipidemia Thyroid disorder Restless leg syndrome GI prophylaxis DVT prophylaxis Full Code Plan Continue on aspirin 81 mg BID as per orthopedic recommendations Recommend holding home BP medication on discharge and monitor BP to avoid postoperative hypotension discussed resuming if blood pressure becomes elevated over 130 systolic. Labs reviewed Encouraged incentive spirometer and continue on bowel and pain regimen. Follow up with primary care and orthopedics on discharge. The impression and plan of care has been dictated by Sofia Johnson Nurse Practitioner as directed. Dr. Jared MD I have performed a history and physical examination and medical decision making of this patient, discussed the same with the dictator, and agree with the dictators assessment and plan as written, documented as a scribe. Based on total visit time, I have performed more than 50% of this visit. Past Medical History Past Medical History: Asthma, Hyperlipidemia, Hypertension, Osteoarthritis (OA), Thyroid Disorder Additional Past Medical History / Comment(s): RLS. CHRONIC BACK PAIN History of Any Multi-Drug Resistant Organisms: None Reported Past Surgical History: Back Surgery, Cholecystectomy, Hysterectomy, Joint Replacement, Orthopedic Surgery Additional Past Surgical History / Comment(s): RIGHT HIP REPLACED. BILATERAL THUMB ARTHROPLASTY. PELVIC FLOOR RECONSTRUCTION Past Anesthesia/Blood Transfusion Reactions: Postoperative Nausea & Vomiting (PONV) Past Psychological History: Anxiety, Depression Smoking Status: Never smoker Past Alcohol Use History: None Reported Past Drug Use History: None Reported - Past Family History Mother Family Medical History: COPD Father Family Medical History: AICD/Pacemaker Additional Family Medical History / Comment(s): OF [place] AT 92 Medications and Allergies Home Medications Medication Instructions Recorded Confirmed Type Levothyroxine Sodium [Synthroid] 50 mcg PO DAILY 04/08/18 09/28/22 History Montelukast [Singulair] 10 mg PO DAILY 04/08/18 09/28/22 History Pantoprazole [Protonix] 40 mg PO DAILY 04/08/18 09/28/22 History clonazePAM 2 tab PO HS 04/08/18 09/28/22 History Albuterol Inhaler [Ventolin Hfa 1 - 2 puff INHALATION Q6H PRN 09/28/22 09/28/22 History Inhaler] Celecoxib [CeleBREX] 200 mg PO DAILY 09/28/22 09/28/22 History DULoxetine HCL [Cymbalta] 60 mg PO DAILY 09/28/22 09/28/22 History Ezetimibe [Zetia] 10 mg PO DAILY 09/28/22 09/28/22 History Fluticasone Propion/Salmeterol 1 inhalation PO BID PRN 09/28/22 09/28/22 History [Advair 100-50 Diskus] Fluticasone/Umeclidin/Vilanter 1 puff INHALATION DAILY PRN 09/28/22 09/28/22 History [Trelegy Ellipta 200-62.5-25] Pregabalin [Lyrica] 100 mg PO BID 09/28/22 09/28/22 History estradioL [Estrace] 1 mg PO DAILY 09/28/22 09/28/22 History rOPINIRole HCL [Requip] 4 mg PO HS 09/28/22 09/28/22 History Aspirin [Adult Low Dose Aspirin EC] 81 mg PO BID 30 Days #60 tab 10/05/22 Rx HYDROcodone/APAP 7.5-325MG [[place] 1 - 2 tab PO Q6H PRN #32 tab 10/05/22 Rx 7.5-325] Sennosides [Senokot] 2 tab PO DAILY PRN #60 tablet 10/05/22 Rx Allergies Allergy/AdvReac Type Severity Reaction Status Date / Time ciprofloxacin [From Cipro] Allergy Rash/Hives Verified 10/05/22 10:24 Dvmkelf-ODV-[id number] Reductase AdvReac Nausea & Verified 10/05/22 10:24 Inhibitor Vomiting [Belhueb-Ibz-Ust Reductase Inhibitor] Physical Exam Vitals: Vital Signs Temp Pulse Resp BP Pulse Ox 10/06/22 07:40 98.1 F 68 17 108/62 95 10/06/22 02:00 97.7 F 93 18 124/76 94 L 10/05/22 19:46 98.7 F 104 H 16 164/82 93 L 10/05/22 18:45 169/82 90 L 10/05/22 18:30 137/84 10/05/22 18:15 106 H 122/64 93 L 10/05/22 18:00 108 H 125/74 91 L 10/05/22 17:45 108 H 127/73 92 L 10/05/22 17:30 109 H 117/72 91 L 10/05/22 17:15 107 H 122/50 91 L 10/05/22 17:00 101 H 111/66 85 L 10/05/22 16:25 83 16 108/62 99 10/05/22 16:00 92 16 110/65 98 10/05/22 15:30 80 16 132/80 99 10/05/22 15:00 69 16 115/60 99 10/05/22 14:24 71 16 114/57 97 10/05/22 14:09 79 16 100/59 98 10/05/22 13:54 97 F L 76 16 102/61 97 10/05/22 11:25 65 16 143/77 97 10/05/22 11:20 78 16 115/77 99 10/05/22 11:13 78 16 147/86 99 10/05/22 10:26 97.1 F L 78 16 141/77 98 Intake and Output 10/05/22 10/06/22 10/06/22 22:59 06:59 14:59 Intake Total 550 Balance 550 Intake: IV 550 Other: Voiding Method Toilet # Voids 1 3 Weight 83.4 kg Results CBC & Chem 7: 10/06/22 06:17 Assessment and Plan Time with Patient: Less than 30
== END 2022-10-06 12:43 | disposition home health service (06) ==
LOC: OR 09:19 → 4SSUR 13:52 → OR 10-06 12:43
PROVIDERS: ATTEND Orthopaedic Surgery
DX: M17.11 Unilateral primary osteoarthritis, right knee (principal); M25.761 Osteophyte, right knee; G89.18 Other acute postprocedural pain; I10 Essential (primary) hypertension; E78.5 Hyperlipidemia, unspecified; K21.9 Gastro-esophageal reflux disease without esophagitis; E03.9 Hypothyroidism, unspecified; J45.909 Unspecified asthma, uncomplicated; Z88.1 Allergy status to other antibiotic agents; Z90.710 Acquired absence of both cervix and uterus; Z90.89 Acquired absence of other organs; Z96.649 Presence of unspecified artificial hip joint; Z87.891 Personal history of nicotine dependence; Z86.59 Personal history of other mental and behavioral disorders; Z79.899 Other long term (current) drug therapy
CPT/HCPCS: 27447; 97161; 64999; 64448; 85025; 73560; C1713; C1776; C1751; J2250; J1100; J0690 ×3; J2405; J2795; J1170